=== PATIENT | male | born 1965 | race Caucasian/White ===

== ENCOUNTER 2018-06-30 06:48 | Observation (INO) | payer BC ==
[2018-06-30 07:53] LABS: ABS Basophils 0.1 10^3/ul (0-0.2); ABS Eosinophils 0.1 10^3/ul (0-0.6); ABS Lymphocytes 1.1 10^3/ul (1.0-4.8); ABS Monocytes 0.6 10^3/ul (0-0.8); ABS Neutrophils 4.1 10^3/ul (1.5-7.7); ABS Nucleated RBC 0 10^3/ul; Eosinophil % 2.4 %; Hematocrit 45 % (42-52); Hemoglobin 15.5 g/dl (14.0-18.0); Lymphocyte % 18.7 %; Mean Corpuscular HGB Conc 34 g/dl (31-36); Mean Corpuscular Hemoglobin 33 pg (27-31); Mean Corpuscular Volume 96 fL (80-94); Mean Platelet Volume 7.5 fL (7.4-10.4); Nucleated Red Blood Cells % 0; Platelet Count 251 10^3/ul (150-450); Red Blood Count 4.72 10^6/ul (4.00-5.40); Red Cell Distribution Width 14 % (10.5-15)
[2018-06-30 08:16] LABS: ALT 14 U/L (7-52); AST 14 U/L (13-39); Albumin 4.4 g/dL (3.2-5.2); Albumin/Globulin Ratio 1.8 (1-3); Alkaline Phosphatase 79 U/L (34-104); Anion Gap 4 mmol/L (2-11); BUN/Creatinine Ratio 13.4 (8-20); Blood Urea Nitrogen 15 mg/dL (6-24); CO2 Carbon Dioxide 31 mmol/L (22-32); Calcium 9.9 mg/dL (8.6-10.3); Chloride 105 mmol/L (101-111); Creatine Kinase 47 U/L (10-223); EGFR Non-African American 68.6 (>60); Globulin 2.4 g/dL (2-4); Glucose 104 mg/dL (70-100); Magnesium 2.2 mg/dL (1.9-2.7); Potassium 4.6 mmol/L (3.5-5.0); Sodium 140 mmol/L (135-145); Total Protein 6.8 g/dL (6.4-8.9)
--- NOTE | 2018-06-30 08:20 | ED ---
Syncope/Near Syncope - HPI Summary HPI Summary: A 53 y/o male accompanied by his presents to the ED c/o near syncopal episode. In the ED room, the patient has a pulse of 63 BPM, O2 saturation of 97% , respiratory of 18, and blood pressure of 163/101. According to the patient, this is the third time he almost passed out. He stated that the first time he was near syncope was when he was standing and talking on the phone. He stated that he did not lose consciousness. He was able to lay on his bed and check his BP which was 90/50. He stated talking on the phone slowly. The second time, he was sitting on the couch with his and he felt lightheaded. He was also pale. He was unable to check his BP and denies any LOC. The third time was today (which brings him to ED), as he was in the shower with his when suddenly he felt lightheaded. He grabbed onto his and he felt very limp. He again, denies any loss of consciousness. He denies any skin diaphoresis, CP, headache, blurred vision, SOB, and heart palpitations. He noted that when he had a Cholecystectomy back in 2014, he actually had syncope after the surgery in the ED room. He stated that the physicians that were caring for him were not sure what it was. He emphasized that was the only time he ever had LOC. Patient denies any current medications. His his concerned about the patient having depression. She stated that he has not been sleeping at night for the past 3 weeks. She stated that the patient cannot "shut off his brain" because he is worrying about stuff. Patient denies any PMHx of syncope or dizziness. - History Of Current Complaint Chief Complaint: EDSyncope Time Seen by Provider: 06/30/18 07:10 Hx Obtained From: Patient, Family/Direct Casting Operator - Onset/Duration: Sudden Onset, Lasting Minutes Timing: Weeks Context: Witnessed Activity At Onset: At Rest Associated Head Trauma: No Alleviating Factor(s): Nothing Associated Signs And Symptoms: Other - low blood pressure - Allergies/Home Medications Allergies/Adverse Reactions: Allergies Allergy/AdvReac Type Severity Reaction Status Date / Time No Known Allergies Allergy Verified 06/30/18 06:53 Home Medications: Home Medications NK [No Home Medications Reported] 06/30/18 [History Confirmed 06/30/18] PMH/Surg Hx/FS Hx/Imm Hx Endocrine/Hematology History: Denies: Hx Diabetes GI History: Reports: Hx Gall Bladder Disease, Other GI Disorders - s/p laparoscopic cholecystectomy 05/19/15; ERCP & STENT PLACEMENT 05/22/15 - Surgical History Surgery Procedure, Year, and Place: Bilateral inguinal hernia repair - 1970, 1996. 05/19/15 lap lisset. 05/22/15 Stent placement Hx Anesthesia Reactions: No Infectious Disease History: No Infectious Disease History: Denies: Traveled Outside the [place] in Last 30 Days - Family History Known Family History: Negative: Diabetes - Social History Alcohol Use: None Substance Use Type: Reports: None Hx Tobacco Use: No Smoking Status (MU): Never Smoked Tobacco Review of Systems Negative: Fever, Skin Diaphoresis Negative: Blurred Vision Negative: Palpitations, Chest Pain Negative: Shortness Of Breath Neurological: Other - positive: near syncope; negative: LOC Negative: Headache, Syncope All Other Systems Reviewed And Are Negative: Yes Physical Exam - Summary Physical Exam Summary: VITAL SIGNS: Reviewed. GENERAL: Patient is a well-developed and nourished male who is lying comfortable in the stretcher. Patient is not in any acute respiratory distress. HEAD AND FACE: No signs of trauma. No ecchymosis, hematomas or skull depressions. No sinus tenderness. EYES: PERRLA, EOMI x 2, No injected conjunctiva, no nystagmus. EARS: Hearing grossly intact. Ear canals and tympanic membranes are within normal limits. MOUTH: Oropharynx within normal limits. NECK: Supple, trachea is midline, no adenopathy, no JVD, no carotid bruit, no c- spine tenderness, neck with full ROM. CHEST: Symmetric, no tenderness at palpation LUNGS: Clear to auscultation bilaterally. No wheezing or crackles. CVS: Regular rate and rhythm, S1 and S2 present, no murmurs or gallops appreciated. ABDOMEN: Soft, non-tender. No signs of distention. No rebound no guarding, and no masses palpated. Bowel sounds are normal. EXTREMITIES: FROM in all major joints, no edema, no cyanosis or clubbing. NEURO: Alert and oriented x 3. No acute neurological deficits. Speech is normal and follows commands. SKIN: Dry and warm GCS: 15 Triage Information Reviewed: Yes Vital Signs On Initial Exam: Initial Vitals Temp Pulse Resp BP Pulse Ox 97.9 F 63 16 165/94 99 06/30/18 06:50 06/30/18 06:50 06/30/18 06:50 06/30/18 06:50 06/30/18 06:50 Vital Signs Reviewed: Yes - Wood Coma Scale Best Eye Response: 4 - Spontaneous Best Motor Response: 6 - Obeys Commands Best Verbal Response: 5 - Oriented Coma Scale Total: 15 Diagnostics - Vital Signs Vital Signs Temp Pulse Resp BP Pulse Ox 06/30/18 07:39 64 18 141/89 98 06/30/18 07:10 57 17 100 06/30/18 07:09 56 13 169/95 99 06/30/18 06:50 97.9 F 63 16 165/94 99 - Laboratory Lab Results: Lab Results 06/30/18 Range/Units 06:44 WBC 6.0 (3.5-10.8) 10^3/ul RBC 4.72 (4.00-5.40) 10^6/ul Hgb 15.5 (14.0-18.0) g/dl Hct 45 (42-52) % MCV 96 H (80-94) fL MCH 33 H (27-31) pg MCHC 34 (31-36) g/dl RDW 14 (10.5-15) % Plt Count 251 (150-450) 10^3/ul MPV 7.5 (7.4-10.4) fL Neut % (Auto) 68.6 % Lymph % (Auto) 18.7 % Mccone % (Auto) 9.5 % Eos % (Auto) 2.4 % Baso % (Auto) 0.8 % Absolute Neuts (auto) 4.1 (1.5-7.7) 10^3/ul Absolute Lymphs (auto) 1.1 (1.0-4.8) 10^3/ul Absolute Monos (auto) 0.6 (0-0.8) 10^3/ul Absolute Eos (auto) 0.1 (0-0.6) 10^3/ul Absolute Basos (auto) 0.1 (0-0.2) 10^3/ul Absolute Nucleated RBC 0 10^3/ul Nucleated RBC % 0 Result Diagrams: 06/30/18 06:44 06/30/18 06:44 Lab Statement: Any lab studies that have been ordered have been reviewed, and results considered in the medical decision making process. - Radiology CXR Radiology Interpretation Completed By: Radiologist Summary of Radiographic Findings: No radiographic evidence of acute cardiopulmonary disease. ED PHYSICIAN REVIEWED THIS RADIOLOGY REPORT. - CT BRAIN CT CT Interpretation Completed By: Radiologist Summary of CT Findings: Left maxillary and sphenoid sinusitis. No intracranial mass or hemorrhage is noted. ED PHYSICIAN REVIEWED THIS RADIOLOGY REPORT. - EKG 0734 Cardiac Rate: Bradycardia - 52 BPM EKG Rhythm: Sinus Bradycardia - 52 BPM Summary of EKG Findings: no ST elevations Course/Dx Assessment/Plan: A 53 y/o male accompanied by his presents to the ED c/o near syncopal episode. In the ED room, the patient has a pulse of 63 BPM, O2 saturation of 97%, respiratory of 18, and blood pressure of 163/101. According to the patient, this is the third time he almost passed out. He stated that the first time he was near syncope was when he was standing and talking on the phone. He stated that he did not lose consciousness. He was able to lay on his bed and check his BP which was 90/50. He stated talking on the phone slowly. The second time, he was sitting on the couch with his and he felt lightheaded. He was also pale. He was unable to check his BP and denies any LOC. The third time was today (which brings him to ED), as he was in the shower with his when suddenly he felt lightheaded. He grabbed onto his and he felt very limp. He again, denies any loss of consciousness. He denies any skin diaphoresis, CP, headache, blurred vision, SOB, and heart palpitations. He noted that when he had a Cholecystectomy back in 2014, he actually had syncope after the surgery in the ED room. He stated that the physicians that were caring for him were not sure what it was. He emphasized that was the only time he ever had LOC. Patient denies any current medications. His his concerned about the patient having depression. She stated that he has not been sleeping at night for the past 3 weeks. She stated that the patient cannot "shut off his brain" because he is worrying about stuff. Patient denies any PMHx of syncope or dizziness. Blood work without any significant abnormality. Head CT shows no acute interconnected pathology. Chest x-ray shows no acute pathology. EKG is in sinus rhythm without any ST elevations. Because of 3 episodes of near syncopal episode, I discussed case with Dr. Arguello from the hospital services who accepted the patient for admission. Patient is hemodynamically stable alert and oriented 3. - Diagnoses Differential Diagnosis/HQI/PQRI: Positive: Dysrhythmia, Seizure, Transient Ischemic Attack, Vasovagal Episode Provider Diagnoses: Near syncope - Physician Notifications Discussed Care of Patient With: Parish Arguello Time Discussed With Above Provider: 08:49 Instructed by Provider To: Other - Accepts patient for admission. Discharge - Sign-Out/Discharge Documenting (check all that apply): Patient Departure - ADMIT, Sign-Out Patient - MONET Signing out patient TO: Parish Arguello Receiving patient FROM: Navarro Poole - Discharge Plan Condition: Stable Disposition: ADMITTED TO [facility] - Billing Disposition and Condition Condition: STABLE Disposition: Admitted to [facility] - Attestation Statements Document Initiated by Scribe: Yes Documenting Scribe: Chato Bailey Provider For Whom Scribe is Documenting (Include Credential): Navarro Poole MD Scribe Attestation: I, Chato Bailey scribed for Navarro Poole MD on 06/30/18 at 1841. Scribe Documentation Reviewed: Yes Provider Attestation: The documentation as recorded by the Chato apariico accurately reflects the service I personally performed and the decisions made by me, Navarro Poole MD Status of Scribe Document: Viewed Attestations Scribe Attestation: Chato Bailey User Type: Provider
[2018-06-30 08:43] LABS: Alcohol < 10 mg/dL (<10)
[2018-06-30 08:58] LABS: TSH (Thyroid Stimulating Horm) 9.73 mcIU/mL (0.34-5.60)
[2018-06-30 09:14] LABS: Urine Appearance Clear; Urine Bilirubin Negative (Negative); Urine Blood Negative (Negative); Urine Color Yellow; Urine Glucose Negative (Negative); Urine Ketones Negative (Negative); Urine Nitrite Negative (Negative); Urine Protein Negative (Negative); Urine Specific Gravity 1.009 (1.010-1.030); Urine Urobilinogen Negative (Negative)
[2018-06-30 09:34] LABS: Barbiturates Urine Screen None Detected (None Detect); Benzodiazepine Urine Screen None Detected (None Detect); Urine Cannabinoids Screen None Detected (None Detect)
[2018-06-30] MEDS ORDERED: Acetaminophen TAB* 325 MG PO PRN (12:09)
[2018-06-30 12:49] LABS: Free T4 0.82 ng/dL (0.61-1.12)
--- NOTE | 2018-06-30 14:57 | HP ---
CC: [facility] * HISTORY AND PHYSICAL: DATE OF ADMISSION: 06/30/18 PRIMARY CARE PROVIDER: [facility] Juan A. ATTENDING PHYSICIAN: Dr. Arguello * (dictated by Prudencio Ramirez NP.) CHIEF COMPLAINT: Near syncope. HISTORY OF PRESENT ILLNESS: Mr. Israel is a 53-year-old male with no past medical history who presents to the emergency department today after 3 episodes of near syncope in the past 2 weeks. The patient reports the first episode occurred approximately 2 weeks ago when he was sitting, he started to feel weak and as if he was going to pass out. He was able to get up and walk to his bedroom, although he was weak and obtained his blood pressure cuff. The patient reports he continued to have a near syncopal episodes where he felt weak and his vision darkens and he closes his eyes. When the weakness resolved , he took his blood pressure quickly after the episode and it was 90/50. In addition, he reports his heart rate was in the 40s. The patient reports his second episode occurred while sitting, talking to his in the living room. The patient reports that he felt lightheaded. She reported he looked pale. He closed his eyes. When he was feeling improved, he did not take his blood pressure this time. The most recent episode happened today while he was in the shower with his . He reports they were finishing up showering when he started to feel lightheaded as if he was going to pass out. He placed his arms on her shoulders and slowly lowered himself into a crouching position. He reports he closed his eyes and then when he felt improved, he stood up and was planning on going to work, but his talked him into coming to the emergency department. It should be noted that the patient has no loss of consciousness during these episodes. He also denies any associated symptoms including but not limited to chest pain, palpitations, shortness of breath, diaphoresis, nausea, vomiting, numbness and tingling, loss of bowel or bladder, tinnitus, dizziness. The patient has no recent change in medication, no recent illness, no travel, or alcohol/drug use. The patient reports that he recalls similar episodes happening back in the for approximately 5 years. He reports he would have similar episodes once a year, but the difference would be that he would have full loss of consciousness. He reports he was evaluated by his doctor at that time with no diagnosis. While in the emergency room, the patient had an EKG, which revealed sinus bradycardia. He also had a chest x-ray, which showed no acute cardiopulmonary disease. He also had a head CT that revealed left maxillary and sphenoid sinusitis, but no cranial mass or hemorrhage. The patient does report he has sinus issues this time of year. While in the emergency department, the patient had also been on telemetry with no noted events other than bradycardia. Due to the patient's repeat episodes over 2 weeks that are unprovoked, the hospitalist team was asked to evaluate the patient for admission. The patient would benefit from observation with telemetry and repeat labs in the morning. PAST MEDICAL HISTORY: No past medical history. PAST SURGICAL HISTORY: 1. Lap lisset. 2. ERCP with stent placement. 3. Inguinal hernia repair x2. ALLERGIES: No known drug allergies. FAMILY HISTORY: Dad when the patient was 7 years old due to an MVA. Mom is alive and well and has hypothyroidism. The patient has no family history of CAD, diarrhea, or cancer. The patient reports he has 2 brothers and 4 sisters, all of which are healthy. The patient does not know of grandparents ' health as they are . SOCIAL HISTORY: The patient denies tobacco use. He reports he smoked approximately 2 months in his teenage years. The patient denies alcohol use. The patient denies drug use. 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 The patient is . The patient has children who are adult children. He lives with his . He is independent in all of his ADLs. REVIEW OF SYSTEMS: Constitutional: The patient denies fevers, denies recent weight loss, denies anorexia. Cardiac: The patient denies chest pain, denies edema, denies palpitations. Respiratory: The patient denies cough, denies hemoptysis, denies shortness of breath. GI: The patient denies nausea and vomiting. Denies diarrhea, denies abdominal pain. He reports last BM was yesterday and was normal. : The patient denies gross hematuria, no dysuria. Neuro: The patient denies focal weakness or sensory loss. As previously mentioned in HPI, the patient reports generalized weakness during near syncopal episodes. Eyes: No visual complaints or changes. ENT: No dysphagia, no sore throat, no nasal congestion. Musculoskeletal: No arthralgias or myalgias. Skin: No rashes or lesions. Psychiatric: No psychosis. The patient reports he is concerned that he might be developing anxiety/depression. He reports that over the last several weeks, he has been having difficulty sleeping. In addition, he finds himself overly worried about grandchildren that something might happen to them. He denies suicidal ideation or homicidal ideation. PHYSICAL EXAMINATION GENERAL: The patient is alert, pleasant, and in no distress. VITAL SIGNS: BP is 159/94, HR 62, temp 97.9, RR 18, O2 sat 98% on room air. HEENT: Eyes: Conjunctivae are pink and moist. Pupils equal and reactive. EOMs intact. ENT: External ears and nose normal. Oropharynx is moist and free from lesion. Posterior pharynx is free from erythema, exudate, or lesions. NECK: The patient has full range of motion. Thyroid is not palpable. No cervical or supraclavicular lymphadenopathy. RESPIRATORY: No accessory muscle use. Lungs are clear to auscultation. No wheezes, rales, or rhonchi. CARDIAC: No murmurs, rubs, or gallop. S1, S2 present. Regular rate and rhythm. ABDOMEN: Soft, nontender, nondistended. Bowel sounds x4. EXTREMITIES: No edema bilaterally. Pedal pulses 2+ bilaterally. MUSCULOSKELETAL: The patient has full range of motion. No clubbing or cyanosis. No abnormalities. SKIN: No rashes or lesions. NEUROLOGIC: Cranial nerves II through XII intact. Moves all extremities. Sensation intact to light touch. Coordination intact. No drift. PSYCHIATRIC: He is alert and oriented x3. Mood and affect are appropriate. He does report some anxiety and depression, but he denies SI or HI. LABORATORY DATA: WBC 6.0, hemoglobin 15.5, hematocrit 45, MCV 96, MCH 33. Sodium 140, potassium 4.6, chloride 105, carbon dioxide 31, BUN 15, creatinine 1.12, glucose 104, lactic acid 1.2, magnesium 2.2, total bilirubin 0.50, AST 14 , ALT 14, alk phos 79. Troponin 0.00. BNP 23. TSH is 9.73, free T4 and total T3 are pending. Urine is unremarkable. Toxicology is unremarkable. ASSESSMENT AND PLAN: 1. Near syncope: Due to the patient's 3 episodes in the 2-week period, he will be admitted for observation. He will be placed on tele. He will be encouraged to ambulate. He will have repeat labs in the morning including a fasting lipid panel. I have ordered an echocardiogram. On the differential includes an arrhythmia. The patient will be on tele overnight. The patient may benefit from outpatient long- term event monitor. Also on the differential includes vasovagal. This is lower on the differential as these episodes are not aggravated by activity, bearing down, intercourse. Also on the differential includes seizure. Seizure is also low on the differential as the patient recalls all events leading up to the near syncopal episodes. He also had no loss of consciousness. He denies loss of bowel and bladder. Also his told him there was no seizure-like activity. Finally on the differential includes TIA. This is also very low on the differential as the patient has no focal neuro deficits when these events occurred. The patient also has no known risk factors. 2. Anxiety/depression: Due to the patient's report of inability to sleep and overly worrying about grandchildren, I suspect he does have some level of anxiety and depression. His TSH was slightly high, but not remarkable in this emergency room setting. Therefore, I will repeat it tomorrow. I have also ordered a free T4 and T3. The patient should follow up with his primary care regarding medical treatment for anxiety and depression and/or referral to a therapist. 3. FEN: The patient will be encouraged to drink fluids. The patient will be provided with a regular diet. 4. Code status: The patient is a full code. 5. DVT prophylaxis: The patient is at moderate risk. I have ordered subcutaneous heparin q.12 hours. 6. Surrogate decision maker: The patient reports his healthcare proxy/ surrogate decision maker is his mother, Nelda Rivas. Her phone number is [phone]. 7. Disposition: The patient will be placed in OBV status with hopes of discharge tomorrow. If the patient cannot get into his primary care provider in [facility] due to not being a regular patient, the patient should follow up with [facility]. I believe this patient would benefit from following with a primary care provider closer as he has not had regular screenings. TIME SPENT: Sixty minutes were spent on this admission, greater than half the time was spent [id number] with the patient, obtaining my history, performing my physical, and discussing my plan of care. This was also discussed with my attending, Dr. Parish Arguello, who agrees with my plan. PRUDENCIO RAMIREZ, SYNTHETIC RESIN OPERATOR [id number]/CPS #: [id number] MARY
[2018-06-30] MEDS ORDERED: Melatonin 3 MG TAB PO PRN (20:57)
[2018-06-30] MEDS: Heparin VIAL(*) 5000 UNITS/ML VIAL (FIVE THOUSAND) SUBCUT SCH (21:53)
[2018-07-01 06:41] LABS: ABS Basophils 0 10^3/ul (0-0.2); ABS Eosinophils 0.2 10^3/ul (0-0.6); ABS Lymphocytes 1.6 10^3/ul (1.0-4.8); ABS Monocytes 0.6 10^3/ul (0-0.8); ABS Neutrophils 3.6 10^3/ul (1.5-7.7); ABS Nucleated RBC 0 10^3/ul; Eosinophil % 3.1 %; Hematocrit 44 % (42-52); Hemoglobin 15.2 g/dl (14.0-18.0); Mean Corpuscular HGB Conc 35 g/dl (31-36); Mean Corpuscular Hemoglobin 33 pg (27-31); Mean Corpuscular Volume 96 fL (80-94); Mean Platelet Volume 7.6 fL (7.4-10.4); Nucleated Red Blood Cells % 0; Platelet Count 243 10^3/ul (150-450); Red Blood Count 4.57 10^6/ul (4.00-5.40); Red Cell Distribution Width 14 % (10.5-15); White Blood Count 5.9 10^3/ul (3.5-10.8)
[2018-07-01 07:02] LABS: Albumin/Globulin Ratio 1.8 (1-3); BUN/Creatinine Ratio 13.6 (8-20); Calcium 9.4 mg/dL (8.6-10.3); EGFR African American 91.4 (>60); EGFR Non-African American 75.5 (>60); Globulin 2.2 g/dL (2-4); HDL Cholesterol 46.8 mg/dL; Total Bilirubin 0.8 mg/dL (0.2-1.0); Total Protein 6.2 g/dL (6.4-8.9)
[2018-07-01 08:15] LABS: TSH (Thyroid Stimulating Horm) 6.77 mcIU/mL (0.34-5.60)
[2018-07-01 09:01] VITALS: BP 140/87
--- NOTE | 2018-07-01 10:16 | ECHO ---
Patient: DAYAN CASTRO [facility] Rec#: [id number] : 1965 Date: 07/01/2018 Age: 53y Height: 170 cm / 66.9 in Weight: 82 kg / 180.7 lbs Sex: M BSA: 1.94 Room#: [facility] Admit Date#: 06/30/2018 Type: Inpatient Referring: Stephany Cerda Reading: Geovany Andujar MD Architect Intern: Katherin Villafuerte RD Transthoracic Echocardiogram Indication: Syncope BP: 140/87 HR: 56 Rhythm: Bradycardia Findings History: Nonsmoker. Technical Comments: The study quality is good. Completed at 0915. Left Ventricle: The left ventricular chamber size is normal. There is no left ventricular hypertrophy. Global left ventricular wall motion and contractility are within normal limits. There is normal left ventricular systolic function. Normal left ventricular diastolic filling is observed. Left Atrium: The left atrium is mildly dilated. Right Ventricle: Moderator Band present. The right ventricle is mildly dilated. The right ventricle wall thickness is mildly increased. The right ventricular global systolic function is normal. Right Atrium: The right atrium is mildly dilated. Aortic Valve: The aortic valve is trileaflet. The aortic valve leaflets are mildly thickened. There is no evidence of aortic regurgitation. There is no evidence of aortic stenosis. Mitral Valve: The mitral valve leaflets are mildly thickened. There is trace to mild mitral regurgitation. There is no evidence of mitral stenosis. Tricuspid Valve: The tricuspid valve leaflets are normal. There is trace to mild tricuspid regurgitation. The right ventricular systolic pressure is estimated at 22 mmHg. No pulmonary hypertension is noted. There is no tricuspid stenosis. Pulmonic Valve: The pulmonic valve appears normal. There is a trace pulmonic regurgitation. There is no pulmonic stenosis. Pericardium: There is no significant pericardial effusion. A pericardial fat pad is visualized. Aorta: There is no dilatation of the ascending aorta. There is no dilatation of the aortic arch. The aortic root is normal in size. Pulmonary Artery: The main pulmonary artery appears normal. Venous: The inferior vena cava appears normal in size. There is a greater than 50% respiratory change in the inferior vena cava dimension. Summary: There was not any prior study for comparison. Conclusions Global left ventricular wall motion and contractility are within normal limits. There is normal left ventricular systolic function. The right ventricular global systolic function is normal. There is no evidence of aortic stenosis. There is trace to mild mitral regurgitation. There is trace to mild tricuspid regurgitation. The right ventricular systolic pressure is estimated at 22 mmHg. There is no significant pericardial effusion. Measurements Name Value Normal Range RVIDd (AP) 2D 3.4 cm (0.9 - 2.6) RVDdMajor (2D) 4.9 cm (2.2 - 4.4) RVAW (2D) 0.6 cm (0.2 - 0.5) RAd ISD 4CH 5.4 cm (3.4 - 4.9) RA (A4C)W 4.8 cm (2.9 - 4.6) IVSd (2D) 1 cm (0.6 - 1) LVPWd (2D) 0.8 cm (0.6 - 1) LVIDd (2D) 4.5 cm (3.6 - 5.4) LVIDs (2D) 2.8 cm - LV FS (2D) 37 % (25 - 45) Aortic Annulus 2.4 cm (1.4 - 2.6) Ao root diameter (2D) 3.2 cm (2.1 - 3.5) Ascending Ao 2.7 cm (2.1 - 3.4) Aortic arch 2.5 cm (1.8 - 3.4) LA dimension (AP) 2D 3.9 cm (2.3 - 3.8) LAd ISD 4CH 6.1 cm (2.9 - 5.3) LA ISD 4CH W 4.9 cm (2.5 - 4.5) Name Value Normal Range LA ESV BP (A/L) index 39 ml/m2 - Name Value Normal Range MV E-wave Vmax 0.7 m/sec - MV deceleration time 218 msec - MV A-wave Vmax 0.5 m/sec - MV E:A ratio 1.5 ratio - LV septal e' Vmax 0.07 m/sec - LV lateral e' Vmax 0.12 m/sec - LV E:e' septal ratio 10 ratio - LV E:e' lateral ratio 5.8 ratio - Name Value Normal Range AV Vmax 1.2 m/sec - AV VTI 26 cm - AV peak gradient 6 mmHg - AV mean gradient 3 mmHg - LVOT Vmax 0.8 m/sec - LVOT VTI 18 cm - LVOT peak gradient 3 mmHg - LVOT mean gradient 1 mmHg - DAVIDE Vmax 0.8 m/sec - Name Value Normal Range TR Vmax 2.2 m/sec - TR peak gradient 19 mmHg - RAP 3 mmHg - RVSP 22 mmHg - IVC diameter 1.2 cm - Name Value Normal Range PV Vmax 1.1 m/sec - PV peak gradient 5 mmHg - CA end-diastolic Vmax 0.7 m/sec - PA end-diastolic pressur2 mmHg -
[2018-07-01] MEDS: Heparin VIAL(*) 5000 UNITS/ML VIAL (FIVE THOUSAND) SUBCUT SCH (10:26)
--- NOTE | 2018-07-01 17:09 | CONS ---
CONSULTATION REPORT: DATE OF CONSULT: 07/01/18 ATTENDING PHYSICIAN: Dr. Kendal Scanlon. CONSULTING PHYSICIAN: Dr. Maxx Sun. REASON FOR CONSULT: Anxiety, obsessive thoughts. SUBJECTIVE HISTORY: As follows: Mr. Israel is a 53-year-old white male with no prior psychi atric history, who is currently being treated on the [address] [place] [address] due to near syncopal events. Thus far his medical workup has not revealed any cardiovascular etiology, but the patient made odd anxious statements to his medical attending and actually did request to meet with a member of the psychiatri c service. When I met with Parish, he was accompanied by his , Tawanna, who provides further hi story. His story is that he has had near syncopal events for years, but never thought much of them. Several weeks ago, he underwent a shift change at work that resulted in a new sleep schedule. He st ates that for the past 3 weeks since the change in shifts, he has had difficulty sleeping. He has tr ied both melatonin as well as zidl-biy-qpgibjr ZzzQuil, but neither have been effective. Around the same time, he states that in the car with his he heard a new report on the radio about a man in [place] shooting his family. The patient became fixated with this news story and is very troubled fabien use when he is trying to sleep at night and staring at his ceiling, this is the thing that pops into his mind. He has also noted feeling agitated at work on the days following a night of difficult slee p. The patient states that he has no formal history of violence towards others, in fact he has no in tention or plan to hurt anyone and not even the temptation. Mostly, it is just the obsessive thought that pops into his night that his troubling to him. He does endorse mild depression recently as wel l as some anxiety. I did screen him for neurovegetative symptoms of depression and in addition to i nsomnia, he also endorses anhedonia, guilt, poor energy, and poor concentration. He does deny appeti te disturbance, psychomotor retardation, or thoughts of ending his own life. PSYCHIATRIC HISTORY: Largely noncontributory. He has never received any counselling or therapy. He has never been on psychiatric medication and he has no history of psychiatric admissions. SUBSTANCE ABUSE HISTORY: Negative for alcohol, tobacco, or illicit drug use. PAST MEDICAL HISTORY: Significant for cholecystectomy in 2015 as well as two separate hernia surgeri es done remotely. FAMILY HISTORY: Noncontributory. SOCIAL HISTORY: He was born and raised in [facility] and now lives there with his family. His mother is still alive, but his father when he was 7. The patient has been for 31 years. He has 2 children, both daughters, age 26 and 28. He also has 3 grandchildren that lives at home w ith him. The patient dropped out of high school in 12th grade and never did get a GED. 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 He says 2 to 3 time s per year his shifts will change resulting in the necessity of him changing his sleep schedule. The patient denies history of service. He is neither sabianism nor spiritual. He has no forma l history of legal problems. MENTAL STATUS EXAM: The patient is a middle-aged white male, slightly overweight, who is dressing in a patient gown. He is sitting up in bed. He makes good eye contact and is easy to establish a poppy ort with. Speech has a normal rate, tone, and volume. Mood appears to be euthymic with a mildly anx ious affect. Thought process is linear and goal directed. Thought content is significant for his co ncerns about his sleep issues as well as intermittent thoughts of harming his family. These are not associated with intention or plan. He denies suicidal ideations. He denies auditory or visual hallu cinations. Insight and judgement are fair given his willingness to seek help. Cognitively, he is aw manuela and alert with what would appear to be an average intellect. DIAGNOSES: As follows: Forsan I: Major depressive disorder, moderate. Forsan II: Deferred. IMPRESSION: The patient is a 53-year-old white male currently hospitalized on the telemetry unit for near syncopal episodes, who reports to his primary team that he has been experiencing depres sive symptoms as well as obsessive thoughts of harming his family after hearing a news report. My se nse of these symptoms is that they are obsessive in nature and that he is of no risk of enacting viol ence towards anyone including himself. I do recommend that the patient start on some counselling as well as gentle antidepressive therapy and the patient and his are in agreement with this. RECOMMENDATIONS TO PRIMARY TEAM: Psychiatry feels that the patient is psychiatrically cleared for abdifatah darby as he is at manageably low risk of harming anyone. I will initiate treatment with mirtazapin e 15 mg p.o. q.h.s. and I have already spoken with the social 2ork service with whom I will consult t o see if we can get the patient hooked in with outpatient therapy and med management. Psychiatry is s igning off at this time. Thank you for the interesting consult. [id number]/[facility] #: [id number]
[2018-07-01] MEDS ORDERED: Mirtazapine TAB* 15 MG PO SCH (21:00)
--- NOTE | 2018-07-01 22:31 | DS ---
CC: Dr. Livingston; Dr. Sun * DISCHARGE SUMMARY: DATE OF ADMISSION: 06/30/18 DATE OF DISCHARGE: 07/01/18 PRIMARY CARE PROVIDER: Likely Dr. Parish Livingston, from [facility]. DISCHARGE DIAGNOSIS: Recurrent near syncope. SECONDARY DIAGNOSIS: Insomnia. MEDICATIONS AT DISCHARGE: Include Remeron 15 mg at bedtime. LABORATORY DATA AND STUDIES PERFORMED DURING THE HOSPITAL STAY: Included: On 07/01/18, sodium of 139, potassium 4.0, chloride 105, carbon dioxide 28, BUN 14 , creatinine 1.03. Liver function tests unremarkable. Vitamin B12 was 246. TSH was 6.77 with free T4 of 0.82 and total T3 of 120. White blood cell count of 5.9, hemoglobin of 15.2, hematocrit of 48, and platelets of 243. The patient's last echocardiogram reported on 07/01/18 showed normal left ventricular systolic function and right ventricular systolic function. There was trace to mild mitral regurgitation and mild tricuspid regurgitation. Brain CT, impression: "Left maxillary sinusitis. No intracranial mass or hemorrhage is noted." HOSPITALIZATION COURSE: Parish Israel is a 53-year-old male who stated that he changed his shift work to a different time approximately 2 weeks ago and since then, he has had problems sleeping. At some point, he heard in the news that a family was killed by their father in [place] and he got really upset about it, started thinking about it, and getting anxious about what would happen if he were to be unable to provide for his family. That worsened his insomnia. He stated that there were several times during the past 2 weeks' period, when he nearly "passed out." On two of those times, one time he was talking on the phone, one time he was sitting down. Last time, he was actually standing when it happened. He had no prodromal symptoms. He did not lose consciousness. There was no incontinence noted. The patient stated that he had similar episodes in 1989 and at that point, "nothing was found." The patient came in to the ED for evaluation after this third episode. He has not seen a doctor for several years now as outpatient. Here in the hospital, we observed the patient in telemetry monitoring bed with no evidence of arrhythmias or bradycardia. His transthoracic echocardiogram was unremarkable and CT of the brain was unremarkable. His TSH is mildly elevated, but his remaining thyroid hormones are within normal limits and the patient is recommended to follow up with his primary care provider with a repeat TSH level in 4 weeks. In regards to patient's anxiety, the patient requested to be seen by a psychiatrist. Dr. Sun saw the patient in psychiatric consultation and noted that the patient is anxious and keeps on thinking about the incident in [place] that happened, but he has no suicidal or homicidal thoughts and he may be simply sleep deprived. At this point, the psychiatrist started the patient on Remeron and referred the patient to [facility]. At discharge, the patient is much more comfortable and ready to go home. I contacted our pharmaceutical plant operator's office with attempt to schedule the patient an appointment for possibility of evaluation for loop recorder. Unfortunately, because the patient does not have a primary care provider established, the cardiology office will need a referral and they recommended for the patient to follow up with a primary care provider and then get referred to Cardiology. PHYSICAL EXAM AT TIME OF DISCHARGE: Blood pressure 140/87, heart rate 58 and regular, respiratory rate of 21, oxygen saturation 95% on room air, temperature 98.7. General: The patient is a very pleasant 53-year-old male who is in no acute distress. Awake, alert, oriented x3. HEENT: Head atraumatic, normocephalic. Eyes: Pupils equal and reactive to light and accommodation. Oropharynx is clear. Mucosa is moist. Neck: Supple. No JVD, no bruits bilaterally. Cardiovascular: Regular rate and rhythm. No murmurs. Respiratory : Clear to auscultation bilaterally. Abdomen: Soft, nontender. Bowel sounds present in all 4 quadrants. Extremities: There is no edema. Pulses +2 bilaterally. There is no clubbing or cyanosis. On neuro evaluation, speech is clear. Cranial nerves II through XII grossly intact. Motor strength is 5/5 bilaterally. Please note that this is a short summary of the patient's hospitalization. Please refer to further medical records for details. At this point, the patient is recommended to follow up with Dr. Livingston in approximately 4 to 7 days. Our office is right now in the process of arranging this follow up appointment. If the patient is unable to follow up with Dr. Livingston in next 7 days, we will refer the patient to [facility] for further followup. [id number]/[facility] #: [id number] [facility]
== END 2018-07-01 15:30 | disposition home or self-care (01) ==
LOC: ED 06:48 → MEDTELE 12:09
PROVIDERS: ADMIT Orthopaedic Surgery; ATTEND Internal Medicine
DX: R55 Syncope and collapse (principal); G47.00 Insomnia, unspecified; R42 Dizziness and giddiness
CPT/HCPCS: 36415; 70450; 71046; 80053; 80061; 80307; 80320; 81003; 82550; 82607; 83605; 83735; 83880; 84439; 84443; 84479; 84484; 85025; 93005; 93306; 96372; 99284; G0378; G0480; J1644